=== PATIENT | male | born 1980 | race Caucasian/White ===

== ENCOUNTER 2017-06-01 06:58 | Day surgery (SDC) | payer MEDICAID ==
[~2017-06-01] VITALS: Ht 200.7 cm; Wt 117.9 kg
[2017-06-01] MEDS ORDERED: LISI-604 PO (08:56)
[2017-06-01] MEDS ORDERED: BENZ100C86 PO (08:56)
[2017-06-01] MEDS ORDERED: SPIR25TA4 PO (08:56)
[2017-06-01] MEDS ORDERED: MAGN500C4 PO (08:56)
[2017-06-01] MEDS ORDERED: COR25 PO (08:56)
[2017-06-01] MEDS ORDERED: FURO-151 PO (08:56)
[2017-06-01 09:23] LABS: BASOPHILS % 0.9 % (0.0-2.0); EOSINOPHILS % 2.3 % (0.0-5.0); HEMATOCRIT. 40.2 % (42.0-52.0); HEMOGLOBIN. 14.1 g/dL (14.0-18.0); LYMPHOCYTES % 22.4 % (20.0-50.0); MEAN CORPUSCULAR HEMOGLOBIN 30.3 pg (28.0-32.0); MEAN CORPUSCULAR VOLUME 86.7 fL (80.0-94.0); MEAN PLATELET VOLUME 9.3 fl (7.4-10.4); MONOCYTES % 9.2 % (2.0-8.0); NEUTROPHILS % 65.2 % (40.0-76.0); PLATELET 149 x1000/uL (130-400); RED BLOOD CELL COUNT 4.64 mill/uL (4.7-6.1); RED CELL DISTRIBUTION WIDTH 13.4 % (11.6-14.6)
[2017-06-01 09:27] LABS: CHLORIDE 106 mEq/L (98-107)
[2017-06-01 09:30] LABS: INR 1.1; PROTHROMBIN TIME 11.1 sec (9.4-11.6)
[2017-06-01] MEDS ORDERED: IOHEXOL-300 100 ML BOTTLE ONE (11:03)
[2017-06-01] MEDS ORDERED: LIDOCAINE HCL/PF 1% 10 MG/ML 5ML VIAL ONE (11:03)
[2017-06-01] MEDS ORDERED: FENTANYL CITRATE/PF 50MCG/ML 2ML VIAL ONE (11:10)
[2017-06-01] MEDS ORDERED: MIDAZOLAM HCL 2 MG/2 ML VIAL ONE (11:10)
[2017-06-01] MEDS ORDERED: HEPARIN SODIUM 1,000 UNIT/1ML VIAL IV ONE (11:57)
== END 2017-06-01 15:00 | disposition home or self-care (01) ==
LOC: CCL 06:58
PROVIDERS: ATTEND Internal Medicine Cardiovascular Disease
DX: R94.39 Abnormal result of other cardiovascular function study (principal); Z79.899 Other long term (current) drug therapy; E03.8 Other specified hypothyroidism; G47.33 Obstructive sleep apnea (adult) (pediatric); I50.22 Chronic systolic (congestive) heart failure
CPT/HCPCS: 36415; 80048; 85025; 85610; 93458; C1769; C1887; C1893; J1644; J2250; J3010; J3490; Q9967